=== PATIENT | female | born 1935 | race Caucasian/White ===

== ENCOUNTER 2019-01-24 14:12 | Emergency (ER) | payer OTHER, MEDICARE ==
[2019-01-24 14:58] LABS: ADD MAN DIFF? NO
[2019-01-24 14:59] LABS: WHITE BLOOD COUNT 9.1 10^3/ul (4.8-10.8)
[2019-01-24 14:59] LABS: BASOPHILS % 0.4 % (0.0-2.0); EOSINOPHILS # 0.1 10^3/ul (0.0-0.5); EOSINOPHILS % 1.1 % (0.0-7.0); HEMOGLOBIN 9.2 g/dl (12.0-16.0); LYMPHOCYTES # 0.9 10^3/ul (0.8-2.9); MEAN CORPUSCULAR HEMOGLOBIN 30.4 pg (29.0-33.0); MEAN CORPUSCULAR HGB CONC 31.7 g/dl (32.0-37.0); MEAN CORPUSCULAR VOLUME 95.7 fl (82.0-101.0); MEAN PLATELET VOLUME 9.8 fl (7.4-10.4); MONOCYTE # 0.7 10^3/ul (0.3-0.9); MONOCYTES % 7.3 % (0.0-11.0); NEUTROPHIL # 7.3 10^3/ul (1.6-7.5); NEUTROPHILS % 79.7 % (39.0-77.0); PLATELET COUNT 311 10^3/UL (140-415); RED BLOOD COUNT 3.03 10^6/ul (4.20-5.40); RED CELL DISTRIBUTION WIDTH 14.3 % (11.5-14.5)
[2019-01-24 15:15] LABS: INR 0.94; PROTIME 12.7 Sec (11.9-14.9)
[2019-01-24 15:19] LABS: ANION GAP 10 (5-13); BLOOD UREA NITROGEN 38 mg/dl (7-20); CALCIUM 9.3 mg/dl (8.4-10.2); CARBON DIOXIDE 22 mmol/L (21-31); CHLORIDE 107 mmol/L (97-110); CREATININE 1.87 mg/dl (0.44-1.00); GLUCOSE 180 mg/dl (70-220); SODIUM 139 mmol/L (135-144)
[2019-01-24 15:22] LABS: POTASSIUM 5.4 mmol/L (3.5-5.1)
[2019-01-24 15:31] LABS: B-TYPE NATRIURETIC PEPTIDE 950 PG/ML (0-450); TROPONIN-I < 0.012 ng/ml (0.000-0.120)
[2019-01-24] MEDS: IODIXANOL LOCM 100 ML BTL (16:22)
[2019-01-24] MEDS: SOD CHLORIDE 0.9% 100 ML (16:22)
[2019-01-24] MEDS: SOD CHLORIDE 0.9% 1,000 ML IV (17:31)
[2019-01-24 19:27] LABS: URINE BLOOD (Dip) POC 1+ (NEGATIVE); URINE GLUCOSE (Dip) POC Negative (NEGATIVE); URINE KETONES (Dip) POC Negative (NEGATIVE); URINE LEUKOCYTE EST (Dip) POC 3+ (NEGATIVE); URINE NITRITE (Dip) POC Negative (NEGATIVE); URINE TOTAL PROTEIN POC 2+ (NEGATIVE)
== END 2019-01-24 22:22 | disposition home or self-care (01) ==
LOC: E/R 14:12
DX: J06.9 Acute upper respiratory infection, unspecified (principal); R09.89 Other specified symptoms and signs involving the circulatory and respiratory systems; R06.02 Shortness of breath; D64.9 Anemia, unspecified; E87.5 Hyperkalemia; N17.9 Acute kidney failure, unspecified; I12.9 Hypertensive chronic kidney disease with stage 1 through stage 4 chronic kidney disease, or unspecified chronic kidney disease; N18.9 Chronic kidney disease, unspecified; E11.22 Type 2 diabetes mellitus with diabetic chronic kidney disease; Z79.84 Long term (current) use of oral hypoglycemic drugs; Z79.01 Long term (current) use of anticoagulants
CPT/HCPCS: 36415; 70498; 71045; 80048; 81003; 83880; 84484; 85025; 85610; 93005; 99285-25

== ENCOUNTER 2019-02-02 08:34 | Inpatient (IN) | payer OTHER ==
[2019-02-02 09:32] LABS: ADD MAN DIFF? NO
[2019-02-02 09:46] LABS: WHITE BLOOD COUNT 8.6 10^3/ul (4.8-10.8)
[2019-02-02 09:46] LABS: ABNORMAL IP MESSAGE 1; BASOPHIL # 0.1 10^3/ul (0.0-0.1); BASOPHILS % 1.4 % (0.0-2.0); EOSINOPHILS # 0.2 10^3/ul (0.0-0.5); EOSINOPHILS % 2.8 % (0.0-7.0); HEMATOCRIT 28.2 % (37.0-47.0); HEMOGLOBIN 8.7 g/dl (12.0-16.0); LYMPHOCYTES # 1.4 10^3/ul (0.8-2.9); LYMPHOCYTES % 16.8 % (15.0-51.0); MEAN CORPUSCULAR HEMOGLOBIN 30.4 pg (29.0-33.0); MEAN CORPUSCULAR HGB CONC 30.9 g/dl (32.0-37.0); MEAN CORPUSCULAR VOLUME 98.6 fl (82.0-101.0); MEAN PLATELET VOLUME 9.2 fl (7.4-10.4); MONOCYTE # 0.8 10^3/ul (0.3-0.9); MONOCYTES % 9.1 % (0.0-11.0); NEUTROPHIL # 5.5 10^3/ul (1.6-7.5); NEUTROPHILS % 64.1 % (39.0-77.0); RED BLOOD COUNT 2.86 10^6/ul (4.20-5.40); RED CELL DISTRIBUTION WIDTH 14.3 % (11.5-14.5)
[2019-02-02 09:50] LABS: PLATELET COUNT 434 10^3/UL (140-415); POSITIVE DIFF @See below
[2019-02-02 09:55] LABS: ALANINE AMINOTRANSFERASE 16 IU/L (13-69); ALBUMIN 3.8 g/dl (3.3-4.9); ALKALINE PHOSPHATASE 74 IU/L (42-121); ANION GAP 14 (5-13); ASPARTATE AMINO TRANSFERASE 35 IU/L (15-46); BILIRUBIN,INDIRECT 0.2 mg/dl (0-1.1); BILIRUBIN,TOTAL 0.2 mg/dl (0.2-1.3); BLOOD UREA NITROGEN 39 mg/dl (7-20); CALCIUM 9.5 mg/dl (8.4-10.2); CARBON DIOXIDE 19 mmol/L (21-31); CHLORIDE 104 mmol/L (97-110); CREATININE 2.36 mg/dl (0.44-1.00); GLUCOSE 99 mg/dl (70-220); LIPASE 109 U/L (23-300); SODIUM 137 mmol/L (135-144); TOTAL PROTEIN 7.6 g/dl (6.1-8.1)
[2019-02-02 10:06] LABS: TROPONIN-I 0.019 ng/ml (0.000-0.120)
[2019-02-02 10:08] LABS: ADD UMIC NO; UR ASCORBIC ACID NEGATIVE (NEGATIVE); UR BILIRUBIN (Dip) NEGATIVE (NEGATIVE); UR BLOOD (Dip) NEGATIVE (NEGATIVE); UR CLARITY CLEAR (CLEAR); UR COLOR YELLOW (YELLOW); UR GLUCOSE (Dip) NEGATIVE (NEGATIVE); UR KETONES (Dip) NEGATIVE (NEGATIVE); UR LEUKOCYTE ESTERASE (Dip) NEGATIVE Leu/ul (NEGATIVE); UR NITRITE (Dip) NEGATIVE (NEGATIVE); UR SPECIFIC GRAVITY (Dip) 1.009 (1.003-1.030); UR TOTAL PROTEIN (Dip) NEGATIVE (NEGATIVE); UR UROBILINOGEN (Dip) NEGATIVE (NEGATIVE)
[2019-02-02] MEDS: SOD CHLORIDE 0.9% 1,000 ML IV (10:25)
[2019-02-02] MEDS: KETOROLAC 15 MG INJ IV (10:25)
[2019-02-02] MEDS: ONDANSETRON 4 MG INJ IV ×3 (10:25→21:17)
[2019-02-02] MEDS ORDERED: NACL 0.9% 3 ML SYG IV (12:30)
[2019-02-02] MEDS: morphine 2 MG INJ IV ×2 (14:25→21:24)
[2019-02-02] MEDS: POLYETHYLENE GLYCOL 17 GM PACKET PO ×2 (14:40→21:51)
[2019-02-02 17:33] LABS: TROPONIN-I 0.031 ng/ml (0.000-0.120)
[2019-02-02] MEDS: LABETALOL HCL 20MG INJ IV (18:46)
[2019-02-02] MEDS ORDERED: GLUCOSE GEL 15 GRAM TUBE PO ×2 (19:00)
[2019-02-02] MEDS ORDERED: GLUCOSE GEL 15 GRAM TUBE BUCCAL (19:00)
[2019-02-02] MEDS ORDERED: GLUCAGON 1 MG INJ IM (19:00)
[2019-02-02] MEDS ORDERED: DEXTROSE 50% 50 ML SYRINGE IV ×2 (19:00)
[2019-02-02] MEDS: INSULIN GLARGINE [LANTus] (100 UNITS/ML) SYG SC (20:00)
[2019-02-02] MEDS: METOPROLOL 25 MG TAB PO (21:51)
[2019-02-02] MEDS: HEPARIN 5,000 UNIT/1 ML VIAL SC (21:53)
[2019-02-02] MEDS: LORAZEPAM 2 MG INJ IV (22:50)
[2019-02-02] MEDS: ALPRAZOLAM 0.5 MG TAB PO (23:00)
[2019-02-02] MEDS ORDERED: ALPRAZOLAM 0.25 MG TAB PO (23:00)
[2019-02-03 05:41] LABS: WHITE BLOOD COUNT 7.9 10^3/ul (4.8-10.8)
[2019-02-03 05:41] LABS: ABNORMAL IP MESSAGE 1; HEMATOCRIT 25.6 % (37.0-47.0); HEMOGLOBIN 8.1 g/dl (12.0-16.0); MEAN CORPUSCULAR HEMOGLOBIN 30.6 pg (29.0-33.0); MEAN CORPUSCULAR HGB CONC 31.6 g/dl (32.0-37.0); MEAN CORPUSCULAR VOLUME 96.6 fl (82.0-101.0); MEAN PLATELET VOLUME 9.1 fl (7.4-10.4); PLATELET COUNT 378 10^3/UL (140-415); RED BLOOD COUNT 2.65 10^6/ul (4.20-5.40); RED CELL DISTRIBUTION WIDTH 14.4 % (11.5-14.5)
[2019-02-03 05:48] LABS: ADD MAN DIFF? YES; POSITIVE DIFF @See below
[2019-02-03 05:54] LABS: HEMOGLOBIN A1C 6.8 % (0-5.9)
[2019-02-03 06:11] LABS: ALANINE AMINOTRANSFERASE 19 IU/L (13-69); ALBUMIN 3.3 g/dl (3.3-4.9); ALKALINE PHOSPHATASE 78 IU/L (42-121); ANION GAP 13 (5-13); ASPARTATE AMINO TRANSFERASE 31 IU/L (15-46); BILIRUBIN,INDIRECT 0.1 mg/dl (0-1.1); BILIRUBIN,TOTAL 0.1 mg/dl (0.2-1.3); BLOOD UREA NITROGEN 30 mg/dl (7-20); CALCIUM 9.2 mg/dl (8.4-10.2); CARBON DIOXIDE 20 mmol/L (21-31); CHLORIDE 106 mmol/L (97-110); GLUCOSE 78 mg/dl (70-220); POTASSIUM 5.3 mmol/L (3.5-5.1); SODIUM 139 mmol/L (135-144); TOTAL PROTEIN 6.6 g/dl (6.1-8.1)
[2019-02-03] MEDS: CLOPIDOGREL 75 MG TAB PO (08:55)
[2019-02-03] MEDS: Insulin NOVOLOG SS MILD Algorithm (SS with meals and bedtime) SC ×4 (08:55→21:10)
[2019-02-03] MEDS: DULOXETINE 30 MG CAP DR PO (08:55)
[2019-02-03] MEDS: METOPROLOL 25 MG TAB PO ×2 (08:56→21:08)
[2019-02-03] MEDS: POLYETHYLENE GLYCOL 17 GM PACKET PO ×2 (08:56→21:05)
[2019-02-03] MEDS: INSULIN ASPART [NOVOLOG] 3 ML PEN SC ×3 (08:58→17:50)
[2019-02-03] MEDS: HEPARIN 5,000 UNIT/1 ML VIAL SC ×2 (08:59→21:10)
[2019-02-03 09:10] LABS: BURR CELLS 1+ (0-0); EOSINOPHILS % (M) 2 % (0-7); GIANT THROMBO% (M) 2 % (0-0); LYMPHOCYTES #M 1.6 10^3/ul (0.8-2.9); LYMPHOCYTES % (M) 21 % (15-51); METAMYELOCYTES %M 1 % (0-0); MONOCYTE #M 0.4 10^3/ul (0.3-0.9); MONOCYTES % (M) 6 % (0-11); MYELOCYTES % (M) 1 % (0-0); OVALOCYTES 1+ (0-0); PLATELET ESTIMATE NORMAL; POIKILOCYTOSIS 1+ (0-0); POLYCHROMASIA 1+ (0-0); SEGMENTED NEUTROPHILS (M) % 69 % (39-77); SMUDGE%M 3 % (0-0)
[2019-02-03 12:33] LABS: ADD MAN DIFF? NO
[2019-02-03 12:37] LABS: BASOPHIL # 0.1 10^3/ul (0.0-0.1); BASOPHILS % 1.6 % (0.0-2.0); EOSINOPHILS # 0.2 10^3/ul (0.0-0.5); EOSINOPHILS % 1.9 % (0.0-7.0); HEMATOCRIT 30.3 % (37.0-47.0); HEMOGLOBIN 9.5 g/dl (12.0-16.0); LYMPHOCYTES # 1.5 10^3/ul (0.8-2.9); LYMPHOCYTES % 17.3 % (15.0-51.0); MEAN CORPUSCULAR HEMOGLOBIN 30.2 pg (29.0-33.0); MEAN CORPUSCULAR HGB CONC 31.4 g/dl (32.0-37.0); MEAN CORPUSCULAR VOLUME 96.2 fl (82.0-101.0); MEAN PLATELET VOLUME 8.9 fl (7.4-10.4); MONOCYTE # 0.7 10^3/ul (0.3-0.9); MONOCYTES % 8.8 % (0.0-11.0); NEUTROPHIL # 5.5 10^3/ul (1.6-7.5); NEUTROPHILS % 66.1 % (39.0-77.0); PLATELET COUNT 448 10^3/UL (140-415); RED BLOOD COUNT 3.15 10^6/ul (4.20-5.40); RED CELL DISTRIBUTION WIDTH 14.3 % (11.5-14.5)
[2019-02-03 12:37] LABS: WHITE BLOOD COUNT 8.4 10^3/ul (4.8-10.8)
[2019-02-03 12:53] LABS: BLOOD UREA NITROGEN 28 mg/dl (7-20); CALCIUM 9.7 mg/dl (8.4-10.2); CARBON DIOXIDE 21 mmol/L (21-31); GLUCOSE 122 mg/dl (70-220); POTASSIUM 5.5 mmol/L (3.5-5.1); SODIUM 138 mmol/L (135-144)
[2019-02-03 13:02] LABS: ANION GAP 9 (5-13); CHLORIDE 108 mmol/L (97-110)
[2019-02-03] MEDS: LORAZEPAM 1 MG TAB PO (19:04)
[2019-02-03] MEDS: INSULIN GLARGINE [LANTus] (100 UNITS/ML) SYG SC (21:10)
[2019-02-03] MEDS ORDERED: VITAMIN A & D 5 GM OINT PACKET TOP (22:30)
[2019-02-03] MEDS: morphine 2 MG INJ IV (22:54)
[2019-02-04] MEDS: morphine 2 MG INJ IV (03:09)
[2019-02-04] MEDS: DOCUSATE SODIUM 100 MG CAP PO ×2 (04:33→20:17)
[2019-02-04] MEDS: SENNA TAB PO ×2 (04:34→20:17)
[2019-02-04] MEDS: METOPROLOL 25 MG TAB PO ×2 (07:28→20:17)
[2019-02-04] MEDS: Insulin NOVOLOG SS MILD Algorithm (SS with meals and bedtime) SC ×4 (08:30→20:14)
[2019-02-04] MEDS: INSULIN ASPART [NOVOLOG] 3 ML PEN SC ×3 (09:26→18:31)
[2019-02-04] MEDS: POLYETHYLENE GLYCOL 17 GM PACKET PO ×2 (09:26→20:17)
[2019-02-04] MEDS: DULOXETINE 30 MG CAP DR PO (09:27)
[2019-02-04] MEDS: CLOPIDOGREL 75 MG TAB PO (09:27)
[2019-02-04] MEDS: HEPARIN 5,000 UNIT/1 ML VIAL SC ×2 (09:27→20:22)
[2019-02-04] MEDS: BISACODYL (EC) 5 MG TAB PO (20:18)
[2019-02-04] MEDS: LORAZEPAM 1 MG TAB PO (23:36)
[2019-02-05] MEDS: SENNA TAB PO (04:41)
[2019-02-05] MEDS: DOCUSATE SODIUM 100 MG CAP PO (04:41)
[2019-02-05] MEDS: hydrALAzine 20 MG INJ IV (05:17)
[2019-02-05] MEDS: morphine 2 MG INJ IV (06:55)
[2019-02-05] MEDS: LORAZEPAM 2 MG INJ IV (07:11)
[2019-02-05] MEDS: POLYETHYLENE GLYCOL 17 GM PACKET PO (09:00)
[2019-02-05] MEDS: Insulin NOVOLOG SS MILD Algorithm (SS with meals and bedtime) SC ×2 (09:26→11:10)
[2019-02-05] MEDS: HEPARIN 5,000 UNIT/1 ML VIAL SC (09:28)
[2019-02-05] MEDS: INSULIN ASPART [NOVOLOG] 3 ML PEN SC ×2 (09:30→12:55)
[2019-02-05] MEDS: CLOPIDOGREL 75 MG TAB PO (09:30)
[2019-02-05] MEDS: DULOXETINE 30 MG CAP DR PO (09:31)
[2019-02-05] MEDS: METOPROLOL 25 MG TAB PO (09:41)
== END 2019-02-05 15:15 | disposition home or self-care (01) | DRG 684 ==
LOC: E/R 08:34 → MS1 11:13
DX: N17.9 Acute kidney failure, unspecified (principal); I12.9 Hypertensive chronic kidney disease with stage 1 through stage 4 chronic kidney disease, or unspecified chronic kidney disease; N18.2 Chronic kidney disease, stage 2 (mild); K59.00 Constipation, unspecified; R11.0 Nausea; I25.10 Atherosclerotic heart disease of native coronary artery without angina pectoris; M17.10 Unilateral primary osteoarthritis, unspecified knee
CPT/HCPCS: 36415; 71045; 74176; 80048; 80053; 81003; 82962; 83036; 83690; 84443; 84484; 85025; 87040; 87086; 93005; 96374; 96375; 99285-25

== ENCOUNTER 2019-02-06 02:47 | Inpatient (IN) | payer OTHER ==
[2019-02-06] MEDS: SOD CHLORIDE 0.9% 100 ML (02:59)
[2019-02-06] MEDS: IODIXANOL LOCM 100 ML BTL (02:59)
[2019-02-06 03:14] LABS: ADD MAN DIFF? NO
[2019-02-06] MEDS: LORAZEPAM 2 MG INJ IV (03:15)
[2019-02-06] MEDS: SOD CHLORIDE 0.9% 1,000 ML IV ×2 (03:15→06:44)
[2019-02-06 03:16] LABS: WHITE BLOOD COUNT 11.2 10^3/ul (4.8-10.8)
[2019-02-06 03:16] LABS: BASOPHIL # 0.1 10^3/ul (0.0-0.1); EOSINOPHILS # 0.2 10^3/ul (0.0-0.5); EOSINOPHILS % 1.3 % (0.0-7.0); HEMATOCRIT 29.1 % (37.0-47.0); HEMOGLOBIN 9.3 g/dl (12.0-16.0); LYMPHOCYTES # 1.5 10^3/ul (0.8-2.9); LYMPHOCYTES % 13.3 % (15.0-51.0); MEAN CORPUSCULAR HEMOGLOBIN 30.5 pg (29.0-33.0); MEAN CORPUSCULAR VOLUME 95.4 fl (82.0-101.0); MEAN PLATELET VOLUME 8.7 fl (7.4-10.4); MONOCYTES % 9.1 % (0.0-11.0); NEUTROPHIL # 7.9 10^3/ul (1.6-7.5); NEUTROPHILS % 70.6 % (39.0-77.0); PLATELET COUNT 467 10^3/UL (140-415); RED BLOOD COUNT 3.05 10^6/ul (4.20-5.40); RED CELL DISTRIBUTION WIDTH 14.2 % (11.5-14.5)
[2019-02-06 03:33] LABS: ANION GAP 13 (5-13); BLOOD UREA NITROGEN 45 mg/dl (7-20); CALCIUM 9.6 mg/dl (8.4-10.2); CARBON DIOXIDE 18 mmol/L (21-31); CHLORIDE 103 mmol/L (97-110); CREATININE 2.67 mg/dl (0.44-1.00); GLUCOSE 190 mg/dl (70-220); SODIUM 134 mmol/L (135-144)
[2019-02-06 03:34] LABS: POTASSIUM 6.1 mmol/L (3.5-5.1)
[2019-02-06 03:38] LABS: INR 0.93; PARTIAL THROMBOPLASTIN TIME 27.6 Sec (23.0-35.0); PROTIME 12.6 Sec (11.9-14.9)
[2019-02-06] MEDS ORDERED: SODIUM POLYSTYRENE 15 GM KIT (POWDER + SORBITOL) PO (03:41)
[2019-02-06 03:44] LABS: TROPONIN-I 0.039 ng/ml (0.000-0.120)
[2019-02-06] MEDS: NA BICARBONATE 8.4% 50 ML SYG IV (03:51)
[2019-02-06] MEDS: CALCIUM GLUCONATE 10% 1 GM in DEXTROSE 5% 100 ML IVPB (03:58)
[2019-02-06] MEDS ORDERED: ALBUTEROL HFA 8 GM INHALER INH (05:45)
[2019-02-06] MEDS ORDERED: NACL 0.9% 3 ML SYG IV (06:00)
[2019-02-06] MEDS ORDERED: ONDANSETRON 4 MG INJ IV (06:00)
[2019-02-06] MEDS: NA POLYST SULFON 15 GM/60 ML BTL PO (06:12)
[2019-02-06] MEDS: CLOPIDOGREL 75 MG TAB PO (09:00)
[2019-02-06 09:26] LABS: CREATINE KINASE 82 IU/L (23-200)
[2019-02-06 09:38] LABS: CK INDEX 2.5; CK-MB 2.02 ng/ml (0.0-2.4); TROPONIN-I 0.052 ng/ml (0.000-0.120)
[2019-02-06] MEDS ORDERED: HYDROCODONE/APAP (5/325) TAB PO (10:00)
[2019-02-06 12:47] LABS: D-DIMER 2065.43 ng/ml (<460)
[2019-02-06] MEDS: SODIUM CHLORIDE 0.45% 500 ML BAG IV* (13:35)
[2019-02-06] MEDS ORDERED: DEXTROSE 50% 50 ML SYRINGE IV ×2 (14:00)
[2019-02-06] MEDS ORDERED: GLUCOSE GEL 15 GRAM TUBE BUCCAL (14:00)
[2019-02-06] MEDS ORDERED: GLUCOSE GEL 15 GRAM TUBE PO ×2 (14:00)
[2019-02-06] MEDS ORDERED: GLUCAGON 1 MG INJ IM (14:00)
[2019-02-06] MEDS: INSULIN ASPART [NOVOLOG] 3 ML PEN SC ×2 (17:03→20:25)
[2019-02-06] MEDS: PANTOPRAZOLE (EC) 40 MG TAB PO (18:23)
[2019-02-06] MEDS: HEPARIN 5,000 UNIT/1 ML VIAL SC (20:34)
[2019-02-06] MEDS: INSULIN GLARGINE [LANTus] (100 UNITS/ML) SYG SC (20:35)
[2019-02-06] MEDS: RANOLAZINE (SR) 500 MG TAB PO (21:00)
[2019-02-07 06:27] LABS: ADD MAN DIFF? NO
[2019-02-07 06:30] LABS: WHITE BLOOD COUNT 7.9 10^3/ul (4.8-10.8)
[2019-02-07 06:30] LABS: BASOPHIL # 0.1 10^3/ul (0.0-0.1); EOSINOPHILS # 0.2 10^3/ul (0.0-0.5); EOSINOPHILS % 2.5 % (0.0-7.0); HEMATOCRIT 24.1 % (37.0-47.0); HEMOGLOBIN 7.6 g/dl (12.0-16.0); LYMPHOCYTES # 1.4 10^3/ul (0.8-2.9); LYMPHOCYTES % 17.1 % (15.0-51.0); MEAN CORPUSCULAR HEMOGLOBIN 30.8 pg (29.0-33.0); MEAN CORPUSCULAR HGB CONC 31.5 g/dl (32.0-37.0); MEAN CORPUSCULAR VOLUME 97.6 fl (82.0-101.0); MEAN PLATELET VOLUME 9.1 fl (7.4-10.4); MONOCYTE # 0.8 10^3/ul (0.3-0.9); MONOCYTES % 9.7 % (0.0-11.0); NEUTROPHIL # 5.2 10^3/ul (1.6-7.5); PLATELET COUNT 381 10^3/UL (140-415); RED BLOOD COUNT 2.47 10^6/ul (4.20-5.40); RED CELL DISTRIBUTION WIDTH 14.6 % (11.5-14.5)
[2019-02-07] MEDS: PANTOPRAZOLE (EC) 40 MG TAB PO ×2 (06:43→17:28)
[2019-02-07 07:24] LABS: ALANINE AMINOTRANSFERASE 18 IU/L (13-69); ALKALINE PHOSPHATASE 71 IU/L (42-121); ANION GAP 12 (5-13); ASPARTATE AMINO TRANSFERASE 25 IU/L (15-46); BILIRUBIN,INDIRECT 0.6 mg/dl (0-1.1); BILIRUBIN,TOTAL 0.6 mg/dl (0.2-1.3); BLOOD UREA NITROGEN 36 mg/dl (7-20); CALCIUM 8.8 mg/dl (8.4-10.2); CARBON DIOXIDE 21 mmol/L (21-31); CHLORIDE 107 mmol/L (97-110); CREATININE 1.95 mg/dl (0.44-1.00); SODIUM 140 mmol/L (135-144)
[2019-02-07 07:32] LABS: GLUCOSE 49 mg/dl (70-220)
[2019-02-07] MEDS: INSULIN ASPART [NOVOLOG] 3 ML PEN SC ×4 (07:55→20:43)
[2019-02-07 08:21] LABS: HEMOGLOBIN A1C 6.6 % (0-5.9)
[2019-02-07] MEDS: RANOLAZINE (SR) 500 MG TAB PO ×2 (08:45→20:35)
[2019-02-07] MEDS: CLOPIDOGREL 75 MG TAB PO (08:45)
[2019-02-07] MEDS: DULOXETINE 30 MG CAP DR PO (08:45)
[2019-02-07] MEDS: HEPARIN 5,000 UNIT/1 ML VIAL SC ×2 (08:56→20:43)
[2019-02-08] MEDS: LABETALOL HCL 20MG INJ IV ×2 (03:54→04:12)
[2019-02-08] MEDS: ACETAMINOPHEN 325 MG TAB PO (04:13)
[2019-02-08] MEDS: PANTOPRAZOLE (EC) 40 MG TAB PO ×2 (06:24→17:39)
[2019-02-08 07:03] LABS: ADD MAN DIFF? NO
[2019-02-08 07:05] LABS: BASOPHIL # 0.1 10^3/ul (0.0-0.1); BASOPHILS % 0.6 % (0.0-2.0); EOSINOPHILS # 0.2 10^3/ul (0.0-0.5); EOSINOPHILS % 2.4 % (0.0-7.0); HEMATOCRIT 22.3 % (37.0-47.0); LYMPHOCYTES # 1.2 10^3/ul (0.8-2.9); MEAN CORPUSCULAR HEMOGLOBIN 30.4 pg (29.0-33.0); MEAN CORPUSCULAR HGB CONC 31.4 g/dl (32.0-37.0); MONOCYTE # 0.9 10^3/ul (0.3-0.9); MONOCYTES % 11.3 % (0.0-11.0); NEUTROPHIL # 5.7 10^3/ul (1.6-7.5); NEUTROPHILS % 69.3 % (39.0-77.0); PLATELET COUNT 367 10^3/UL (140-415); RED CELL DISTRIBUTION WIDTH 14.6 % (11.5-14.5)
[2019-02-08 07:05] LABS: WHITE BLOOD COUNT 8.3 10^3/ul (4.8-10.8)
[2019-02-08 07:29] LABS: ANION GAP 8 (5-13); BLOOD UREA NITROGEN 31 mg/dl (7-20); CALCIUM 8.9 mg/dl (8.4-10.2); CARBON DIOXIDE 23 mmol/L (21-31); CHLORIDE 110 mmol/L (97-110); CREATININE 1.59 mg/dl (0.44-1.00); GLUCOSE 115 mg/dl (70-220); POTASSIUM 3.7 mmol/L (3.5-5.1); SODIUM 141 mmol/L (135-144)
[2019-02-08] MEDS: INSULIN ASPART [NOVOLOG] 3 ML PEN SC ×4 (07:55→20:39)
[2019-02-08] MEDS: CLOPIDOGREL 75 MG TAB PO (09:05)
[2019-02-08] MEDS: RANOLAZINE (SR) 500 MG TAB PO ×2 (09:05→20:34)
[2019-02-08] MEDS: DULOXETINE 30 MG CAP DR PO (09:05)
[2019-02-08] MEDS: HEPARIN 5,000 UNIT/1 ML VIAL SC ×2 (09:16→20:39)
[2019-02-08] MEDS: LOSARTAN 50 MG TAB PO (13:21)
[2019-02-09] MEDS: hydrALAzine 20 MG INJ IV (01:00)
[2019-02-09] MEDS: ALBUTEROL/IPRATROPIUM (NEB) 3 ML AMP HHN (02:36)
[2019-02-09] MEDS: LORAZEPAM 2 MG INJ IV (02:55)
[2019-02-09] MEDS: PANTOPRAZOLE (EC) 40 MG TAB PO ×2 (05:47→17:46)
[2019-02-09] MEDS: INSULIN ASPART [NOVOLOG] 3 ML PEN SC ×3 (07:58→17:42)
[2019-02-09] MEDS: RANOLAZINE (SR) 500 MG TAB PO (09:28)
[2019-02-09] MEDS: AMLODIPINE 5 MG TAB PO (09:28)
[2019-02-09] MEDS: LOSARTAN 50 MG TAB PO (09:29)
[2019-02-09] MEDS: DULOXETINE 30 MG CAP DR PO (09:29)
[2019-02-09] MEDS: CLOPIDOGREL 75 MG TAB PO (09:29)
[2019-02-09] MEDS: HEPARIN 5,000 UNIT/1 ML VIAL SC (09:34)
== END 2019-02-09 18:14 | disposition home health service (06) | DRG 880 ==
LOC: E/R 02:47 → TEL 05:48
DX: F41.0 Panic disorder [episodic paroxysmal anxiety] (principal); N17.9 Acute kidney failure, unspecified; I12.9 Hypertensive chronic kidney disease with stage 1 through stage 4 chronic kidney disease, or unspecified chronic kidney disease; N18.3 Chronic kidney disease, stage 3 (moderate); I25.10 Atherosclerotic heart disease of native coronary artery without angina pectoris; Z79.02 Long term (current) use of antithrombotics/antiplatelets; D63.1 Anemia in chronic kidney disease; M17.10 Unilateral primary osteoarthritis, unspecified knee; K31.84 Gastroparesis; I65.29 Occlusion and stenosis of unspecified carotid artery; Z86.73 Personal history of transient ischemic attack (TIA), and cerebral infarction without residual deficits
CPT/HCPCS: 36415; 71045; 78582; 80048; 80053; 82550; 82553; 82962; 83036; 84484; 85025; 85378; 85610; 85730; 93005; 93306; 93970; 94664; 96374; 96375; 97161; 99285-25